=== PATIENT | female | born 1940 | race Caucasian/White ===

== ENCOUNTER 2020-11-24 17:30 | Emergency (ER) | payer MEDICARE, OTHER ==
[2020-11-24 18:33] LABS: RED BLOOD COUNT 3.83 M/UL (4.00-5.10)
[2020-11-24] MEDS ORDERED: ZOFRAN 4 MG TAB4 MG PO (23:11)
[2020-11-24] MEDS ORDERED: IBUPROFEN800 MG PO (23:11)
[2020-11-24] MEDS ORDERED: FLAGYL500 MG PO (23:11)
[2020-11-24] MEDS ORDERED: AUGMENTIN 875-1 EACH PO (23:11)
[2020-11-24] MEDS ORDERED: MACRODANTIN100 MG PO (23:11)
== END 2020-11-24 23:30 | disposition home or self-care (01) ==
LOC: ER1 17:30
PROVIDERS: Physician Assistant Medical
DX: K52.9 Noninfective gastroenteritis and colitis, unspecified (principal); I10 Essential (primary) hypertension; J44.9 Chronic obstructive pulmonary disease, unspecified; Z88.1 Allergy status to other antibiotic agents; Z88.8 Allergy status to other drugs, medicaments and biological substances; Z90.49 Acquired absence of other specified parts of digestive tract; Z90.710 Acquired absence of both cervix and uterus
CPT/HCPCS: 71045; 80053; 81001; 82436; 82550; 82553; 82570; 83735; 83874; 83880; 83935; 84133; 84300; 84439; 84443; 84484; 85025; 87040; 93005; 99285; Q9967